=== PATIENT | female | born 1990 | race Caucasian/White ===

== ENCOUNTER 2023-10-17 19:05 | Emergency (ER) | payer MEDICAID, SELFPAY ==
[2023-10-17 19:12] VITALS: BP 151/93; PULSE 99; RESP 18; TEMP 36.7; O2SAT 97; BMI 28.3
--- NOTE | 2023-10-17 19:42 | ED_ITS ---
HPI - Abdominal Pain 2 General: Chief Complaint: Abdominal Pain Stated Complaint: Strep Throat Time Seen by Provider: 10/17/23 19:27 Source: patient Mode of arrival: ambulatory Limitations: no limitations History of Present Illness: 33-year-old female states she is diagnos ed with strep earlier last week states she been on antibiotics since taking antibiotics been having some GI distress states she has had vomiting along with upper abdominal cramping states she has 2 days left of antibiotics her throat feels improved she is denies any fever denies any worsening improving factors. Associated Symptoms: Reports nausea and vomiting; Denies chills, diarrhea, dysuria and fever(s) Related Data: Date of Last Menstrual Period: 09/29/23 Review of Systems 2 Const: Denies: fever(s) or chills ENMT: Denies: throat pain or dental pain Card: Denies: chest pain Resp: Denies: dyspnea GI: Reports: abdominal pain, nausea and vomiting; Denies: diarrhea : Denies: dysuria Musc: Denies: neck pain or back pain Skin/Breast: Denies: rash Neuro: Denies: headache(s) [facility] ED 2 Female Reproductive History: Date of last menstrual period: 09/29/23 Physical Exam 2 Const: COMMON NORMALS: no acute distress, patient oriented x3 and healthy appearing HENMT: COMMON NORMALS: normocephalic and atraumatic HEAD & SCALP: n ormocephalic and atraumatic Neck/C-Spine: COMMON NORMALS: full ROM and supple Chest: COMMONS NORMALS: normal inspection of the chest Resp: COMMON NORMALS: normal respiratory effort Cardio: COMMON NORMALS: regular rate, regular rhythm and No murmurs present (Cardio) RATE: regular rate RHYTHM: regular rhythm GI: COMMON NORMALS: Normal to inspection, nondistended, normoactive bowel sounds present, Soft to palpation, non-tender and no masses PALPATION: Yes Soft to palpation Extremity: COMMON NORMALS: normal to inspection and full ROM Neuro: COMMON NORMALS: patient oriented x3, moves all extremities and no focal motor deficits Psych: COMMON NORMALS: mental status grossly normal, Normal thought process present and cooperative THOUGHT PROCESS: Normal thought process present Skin: COMMON NORMALS: no rashes or lesions noted and no wounds GENERAL SKIN EXAM: no rashes or lesions noted Course 2 Vital Signs: Vital signs: Vital Signs Temperature 98.0 F 10/17/23 19:12 Pulse Rate 77 10/17/23 20:16 Respiratory Rate 16 10/17/23 20:16 Blood Pressure 126/94 10/17/23 20:16 Pulse Oximetry 96 10/17/23 20:16 MDM - Abdominal Pain Medical Decision Making Patient presents here with vomiting likely from her antibiotics her exam here is benign blood work is normal no signs of acute surgical abdomen she feels better here after Zofran will prescribe her Zofran for home she is follow-up with PCP and return if worsening. Medical Records I reviewed the patient's medical records. Lab Data I reviewed the patient's lab results. 10/17/23 19:47 10/17/23 19:47 Labs/Radiology: Laboratory Results WBC 5.96 10^3/uL (3.29-11.43) 10/17/23 19:47 RBC 4.76 10^6/uL (3.85-5.65) 10/17/23 19:47 Hgb 10.50 g/dL (11.27-16.99) L 10/17/23 19:47 Hct 34.7 % (36-47) L 10/17/23 19:47 MCV 72.9 fl (85-98) L 10/17/23 19:47 MCH 22.1 pg (27-33) L 10/17/23 19:47 MCHC 30.3 g/dL (30-55) 10/17/23 19:47 RDW 15.9 % (12.1-15.1) H 10/17/23 19:47 Plt Count 233 10^3/cmm (157-399) 10/17/23 19:47 MPV 12.1 fL (7.4-10.4) H 10/17/23 19:47 Neut % (Auto) 61.9 % 10/17/23 19:47 Lymph % (Auto) 31.0 % 10/17/23 19:47 [place] % (Auto) 6.0 % 10/17/23 19:47 Eos % (Auto) 0.5 % 10/17/23 19:47 Baso % (Auto) 0.3 % 10/17/23 19:47 Neut # (Auto) 3.68 10^3/uL (1.8-7.7) 10/17/23 19:47 Lymph # (Auto) 1.9 10^3/uL (0.8-4.8) 10/17/23 19:47 [place] # (Auto) 0.4 10^3/uL (0.2-0.9) 10/17/23 19:47 Eos # (Auto) 0.0 10^3/uL (0.0-0.8) 10/17/23 19:47 Baso # (Auto) 0.0 10^3/uL (0.0-0.1) 10/17/23 19:47 Nucleated RBC % (auto) 0 % 10/17/23 19:47 Nucleated RBCs # 0.0 /100WBC 10/17/23 19:47 Sodium 138 mmol/L (136-145) 10/17/23 19:47 Potassium 3.3 mmol/L (3.5-5.1) L 10/17/23 19:47 Chloride 106 mmol/L (98-107) 10/17/23 19:47 Carbon Dioxide 23 mmol/L (22-29) 10/17/23 19:47 Anion Gap 12.3 (5-19) 10/17/23 19:47 BUN 10 mg/dL (6-20) 10/17/23 19:47 Creatinine 0.5 mg/dL (0.5-0.9) 10/17/23 19:47 GFR Calculation 143.9 mL/min (90-130) H 10/17/23 19:47 Glucose 91 mg/dL (65-115) 10/17/23 19:47 Calculated Osmolality 285 mOsm/kg (285-295) 10/17/23 19:47 Calcium 8.8 mg/dL (8.5-10.5) 10/17/23 19:47 Total Bilirubin 0.3 mg/dL (0.15-1.2) 10/17/23 19:47 AST 11 U/L (0-32) 10/17/23 19:47 ALT 9 U/L (0-33) 10/17/23 19:47 Alkaline Phosphatase 53 U/L (35-105) 10/17/23 19:47 Total Protein 7.0 g/dL (6.6-8.7) 10/17/23 19:47 Albumin 4.3 g/dL (3.5-5.2) 10/17/23 19:47 Globulin 2.7 g/dL (1.3-4.6) 10/17/23 19:47 Lipase 30 U/L (13-60) 10/17/23 19:47 HCG, Qual Negative (Negative) 10/17/23 19:47 Urine Color Yellow (Yellow) 10/17/23 20:04 Urine Appearance Hazy (CLEAR) A 10/17/23 20:04 Urine pH 5 (5-7) 10/17/23 20:04 Ur Specific [place] 1.020 (1.005-1.030) 10/17/23 20:04 Urine Protein 1+ (Negative) H 10/17/23 20:04 Urine Glucose (UA) Norm (Normal) 10/17/23 20:04 Urine Ketones Negative (Negative) 10/17/23 20:04 Urine Blood 2+ (Negative) H 10/17/23 20:04 Urine Nitrate Negative (Negative) 10/17/23 20:04 Urine Bilirubin Neg (Negative) 10/17/23 20:04 Urine Urobilinogen Norm mg/dL (Negative) 10/17/23 20:04 Ur Leukocyte Esterase Negative (Negative) 10/17/23 20:04 Urine RBC 0-4 /hpf (0-2) H 10/17/23 20:04 Urine WBC 5-10 /hpf (0-5) H 10/17/23 20:04 Ur Squamous Epith Cells 5-10 /hpf (0-5) H 10/17/23 20:04 Amorphous Sediment Trace /hpf 10/17/23 20:04 Urine Bacteria 2+ /hpf (NONE) H 10/17/23 20:04 Urine Mucus Trace /hpf 10/17/23 20:04 No radiology studies performed this visit Discharge Plan Discharge Patient Disposition: Home Clinical Impression: Vomiting Qualifiers: Vomiting type: unspecified Nausea presence: with nausea Qualified Code(s): R 11.2 - Nausea with vomiting, unspecified Condition: Stable Prescriptions: New ondansetron 4 mg tablet,disintegrating 4 mg PO Q6H PRN (Reason: nausea and vomiting) Qty: 14 0RF Discharge Orders: Discharge ED (Routine); Ordered 10/17/23 Ordered By: Annabel Betancourt Referrals: Vidhya Rm MD [Primary Care Provider] - 4-7 days Discharge Diet: Advance as tolerated Discharge Activity: Resume usual activity Patient Instructions: Acute Nausea and Vomiting (ED) Coding Level of Care Code ED [employer] Support [employer] for [facility]
[2023-10-17] MEDS: ondansetron 2 mg/ML SDV 2 mL 4 MG IVP (19:51)
[2023-10-17] MEDS: sodium chloride 0.9% 1,000 ML 999 ML IV (19:53)
[2023-10-17 19:59] LABS: Basophils % 0.3 %; Eosinophils % 0.5 %; Hematocrit 34.7 % (36-47); Lymphocytes # 1.9 10^3/uL (0.8-4.8); Mean Corpuscular HGB Conc 30.3 g/dL (30-55); Mean Corpuscular Hemoglobin 22.1 pg (27-33); Mean Corpuscular Volume 72.9 fl (85-98); Mean Platelet Volume 12.1 fL (7.4-10.4); Monocytes # 0.4 10^3/uL (0.2-0.9); Neutrophils # 3.68 10^3/uL (1.8-7.7); Neutrophils % 61.9 %; Nucleated Red Blood Cells % 0 %; Platelet Count 233 10^3/cmm (157-399); Red Blood Count 4.76 10^6/uL (3.85-5.65); Red Cell Distribution Width 15.9 % (12.1-15.1); White Blood Count 5.96 10^3/uL (3.29-11.43)
[2023-10-17 20:10] LABS: Alanine Aminotransferase 9 U/L (0-33); Albumin Level 4.3 g/dL (3.5-5.2); Alkaline Phosphatase 53 U/L (35-105); Anion Gap 12.3 (5-19); Aspartate Amino Transferase 11 U/L (0-32); Blood Urea Nitrogen 10 mg/dL (6-20); Calcium 8.8 mg/dL (8.5-10.5); Carbon Dioxide 23 mmol/L (22-29); Chloride 106 mmol/L (98-107); Creatinine Clr Calc Pharmacy 155.6263; Globulin 2.7 g/dL (1.3-4.6); Glomerular Filtration Rate 143.9 mL/min (90-130); Glucose 91 mg/dL (65-115); HCG, Serum Qual Negative (Negative); Lipase 30 U/L (13-60); Osmolality Calculated 285 mOsm/kg (285-295); Potassium 3.3 mmol/L (3.5-5.1); Sodium 138 mmol/L (136-145); Total Bilirubin 0.3 mg/dL (0.15-1.2)
[2023-10-17 20:16] VITALS: BP 126/94; PULSE 77; RESP 16; O2SAT 96
[2023-10-17 20:17] LABS: Glucose Urine UA Norm (Normal); Protein Urine 1+ (Negative); Urine Appearance Hazy (CLEAR); Urine Color Yellow (Yellow); pH Urine 5 (5-7)
[2023-10-17 20:18] LABS: Add Urine Microscopic? YES; Bilirubin Urine Neg (Negative); Blood Urine 2+ (Negative); Ketones Urine Negative (Negative); Leukocyte Esterase Urine Negative (Negative); Nitrate Urine Negative (Negative); Urobilinogen Urine Norm (Negative)
[2023-10-17 20:22] LABS: Add Urine Culture? Yes; Amorphous Sediment Urine TRACE /hpf; Bacteria Urine 2+ /hpf; Mucus Urine TRACE /hpf; RBC Urine 0-4 /hpf (0-2)
[2023-10-17 20:40] VITALS: BP 133/88; PULSE 77; RESP 16; O2SAT 97
--- NOTE | 2023-10-17 20:40 | PC.NURSE ---
Pt given 4mg Zofran tab to take home per Dr Betancourt's orders.
== END 2023-10-17 20:41 | disposition home or self-care (01) ==
PROVIDERS: Emergency Provider Emergency Medicine; PCP Family Medicine
DX: R11.2 Nausea with vomiting, unspecified (principal)
CPT/HCPCS: 80053; 81001; 83690; 84703; 85025; 87086; 96361; 96374; 99284; J2405; J7030